=== PATIENT | female | born 1965 | race Caucasian/White ===

== ENCOUNTER 2023-09-19 09:41 | Day surgery (SDC) | payer BC, SELFPAY ==
[2023-09-19] VITALS (17 sets, daily range): BP systolic 86–138; BP diastolic 56–72; BMI 33.8
[2023-09-19] MEDS: NSS 251 ML IV (10:45)
[2023-09-19 11:03] LABS: Glucose - Point of Care 134 mg/dl (70-99)
--- NOTE | 2023-09-19 11:49 | ITS.CL.CATH ---
[employer] - Catheterization
Cardiac Catheterization
Procedure Report:
CARDIAC CATHETERIZATION REPORT
Date of Procedure: 09/19/2023
Referring: Kashif Renteria DO
Indication: Episode of chest discomfort with elevated troponins 1 year following RCA PCI at [facility] for STEMI
HEMODYNAMIC DATA
AO: 133/75
LV: 133/14
LEFT VENTRICULOGRAPHY: Inferobasal hypokinesis with EF 56%
CORONARY ANGIOGRAPHY
Dominance: Right
Left Main: Normal
LAD: 30% proximal LAD stenosis with 30-40% mid LAD stenosis past the takeoff of D2. There is 80% distal LAD stenosis proximal to the LV apex. D1 is small. D2 is large with 30% ostial stenosis
Circumflex: There is a medium sized large distribution ramus intermedius with 60% ostial stenosis. The circumflex is a small caliber diffusely diseased vessel with 40% proximal stenosis. OM1 is a medium sized vessel with 50% proximal stenosis. OM
2 is small. The circumflex terminates with a medium sized OM 3.
RCA: The RCA is proximally occluded. A medium sized PDA and a large posterolateral branch fill via [id number] collaterals
Closure Device: None-the procedure was performed via the right radial artery. The Ricardo's test was normal prior to the procedure.
Radiation (mGy): 465
DAP (cm2.Gy): 43.8
Fluoroscopy time: 6.2 minutes
CONCLUSIONS
1: Inferobasal hypokinesis with EF 56%
2: Severe triple-vessel CAD as described. The RCA which was stented at [facility] in August 30, 2022 for STEMI is now proximally occluded. There is no clear culprit lesion to PCI with the expectation that this will improve symptoms. The anatomy is not
well-suited for CABG as the LAD disease is distal and the circumflex branches are relatively small. I would reserve CABG for symptoms refractory to medical therapy. We will add Imdur 30 mg daily to her regimen along with sublingual nitroglycerin.
3. Continue attempts at aggressive risk factor modification. She reports failing multiple statin drugs and if verified would be an appropriate candidate for PSK 9 inhibitor therapy
Copy to: Mikhail Renteria DO, ANTONIO Beatty
Sabas Carbajal MD, FACC, [facility]
[2023-09-19 13:08] LABS: Glucose - Point of Care 125 mg/dl (70-99)
== END 2023-09-19 14:45 | disposition home or self-care (01) ==
LOC: CATH 09:41
PROVIDERS: ATTENDING PHYSICIAN Internal Medicine Cardiovascular Disease; FAMILY PHYSICIAN Nurse Practitioner Family; OTHER PHYSICIAN Internal Medicine Cardiovascular Disease
DX: I25.10 Atherosclerotic heart disease of native coronary artery without angina pectoris (principal); R07.89 Other chest pain; I11.0 Hypertensive heart disease with heart failure; I50.22 Chronic systolic (congestive) heart failure; E78.5 Hyperlipidemia, unspecified; I25.2 Old myocardial infarction; E11.9 Type 2 diabetes mellitus without complications; Z79.01 Long term (current) use of anticoagulants; Z79.82 Long term (current) use of aspirin; Z79.84 Long term (current) use of oral hypoglycemic drugs
CPT/HCPCS: 82962; 93458; C1894; Q9967